=== PATIENT | male | born 2000 | race Caucasian/White ===

== ENCOUNTER 2018-03-25 09:33 | Emergency (ER) | payer OTHER ==
--- NOTE | 2018-03-25 10:11 | EDPHY ---
H & P Time Seen by Provider: 03/25/18 10:09 HPI/ROS: Chief complaint. Abdominal pain HPI. 17-year-old male presents emergency department with abdominal pain that began this morning. Worse with standing. It is upper mid abdomen and described as pressure. No radiation to back. Nausea without vomiting or diarrhea. History of GERD. No urinary symptoms. No fever. No chest pain or shortness of breath ROS 10 systems were reviewed and negative with the exception of the elements mentioned in the history of present illness Past Medical/Surgical History: Appendectomy Social History: Single, nonsmoker, no alcohol Smoking Status: Never smoked Physical Exam: General Appearance: Alert pleasant well-developed male mild distress vital signs are stable. Afebrile Eyes: Pupils equal and round no pallor or injection. ENT, Mouth: Mucous membranes are moist. Respiratory: There are no retractions, lungs are clear to auscultation. Cardiovascular: Regular rate and rhythm. Gastrointestinal: Abdomen is soft with mild tenderness in the epigastrium. Normal bowel sounds. No masses Neurological: Awake and alert, sensory and motor exams grossly normal. Skin: Warm and dry, no rashes. Musculoskeletal: Neck is supple nontender. Extremities symmetrical, full range of motion. Psychiatric: Patient is oriented X 3, there is no agitation. Constitutional: Initial Vital Signs Temperature (C) 36.3 C 03/25/18 09:38 Heart Rate 50 L 03/25/18 09:38 Respiratory Rate 18 03/25/18 09:38 Blood Pressure 117/65 03/25/18 09:38 O2 Sat (%) 99 03/25/18 09:38 O2 Delivery Mode Room Air Allergies/Adverse Reactions: No Known Allergies Allergy (Verified 03/25/18 09:38) Home Medications: Medication Instructions Recorded NK [No Known Home Meds] 03/25/18 Medical Decision Making - Diagnostics Imaging Results: Imaging Impressions Abdomen X-Ray 03/25/18 11:33 Impression: No evidence for obstruction or perforation identified. Upright abdomen shows no evidence of free air or air-fluid levels Procedures: IV normal saline. GI cocktail. ED Course/Re-evaluation: Re-evaluation 11:25 a.m.. Patient has no pain now. The patient, his mother, and I discussed laboratory evaluation. We discussed CT and upright abdomen x- ray. We agreed for upright abdomen x-ray. Differential Diagnosis: This certainly could be GERD. He has a history of GERD. No evidence for pancreatitis or cholecystitis. He now no longer has any pain. - Data Points Laboratory Results: Laboratory Results 03/25/18 10:00 03/25/18 10:00 03/25/18 03/25/18 10:00 10:00 WBC 3.73 10^3/uL L 10^3/uL (3.80-9.50) RBC 5.13 10^6/uL 10^6/uL (4.40-6.38) Hgb 15.2 g/dL g/dL (13.7-17.5) Hct 45.1 % % (40.0-51.0) MCV 87.9 fL fL (81.5-99.8) MCH 29.6 pg pg (27.9-34.1) MCHC 33.7 g/dL g/dL (32.4-36.7) RDW 12.7 % % (11.5-15.2) Plt Count 223 10^3/uL 10^3/uL (150-400) MPV 9.8 fL fL (8.7-11.7) Neut % (Auto) 47.5 % % (39.3-74.2) Lymph % (Auto) 40.5 % % (15.0-45.0) Door % (Auto) 7.2 % % (4.5-13.0) Eos % (Auto) 3.2 % % (0.6-7.6) Baso % (Auto) 1.3 % % (0.3-1.7) Nucleat RBC Rel Count 0.0 % % (0.0-0.2) Absolute Neuts (auto) 1.77 10^3/uL 10^3/uL (1.70-6.50) Absolute Lymphs (auto) 1.51 10^3/uL 10^3/uL (1.00-3.00) Absolute Monos (auto) 0.27 10^3/uL L 10^3/uL (0.30-0.80) Absolute Eos (auto) 0.12 10^3/uL 10^3/uL (0.03-0.40) Absolute Basos (auto) 0.05 10^3/uL 10^3/uL (0.02-0.10) Absolute Nucleated RBC 0.00 10^3/uL 10^3/uL (0-0.01) Immature Gran % 0.3 % % (0.0-1.1) Immature Gran # 0.01 10^3/uL 10^3/uL (0.00-0.10) Sodium 139 mEq/L mEq/L (135-145) Potassium 4.1 mEq/L mEq/L (3.5-5.2) Chloride 107 mEq/L mEq/L (97-110) Carbon Dioxide 25 mEq/l mEq/l (22-31) Anion Gap 7 mEq/L mEq/L (6-14) BUN 19 mg/dL mg/dL (7-23) Creatinine 0.8 mg/dL mg/dL (0.7-1.3) Estimated GFR > 60 Glucose 89 mg/dL mg/dL (70-100) Calcium 9.4 mg/dL mg/dL (8.5-10.4) Total Bilirubin 1.2 mg/dL mg/dL (0.1-1.4) Conjugated Bilirubin 0.2 mg/dL mg/dL (0.0-0.5) Unconjugated Bilirubin 1.0 mg/dL mg/dL (0.0-1.1) AST 24 IU/L IU/L (17-59) ALT 27 IU/L IU/L (21-72) Alkaline Phosphatase 46 IU/L IU/L (38-126) Total Protein 7.1 g/dL g/dL (6.3-8.2) Albumin 4.5 g/dL g/dL (3.5-5.0) Lipase 65 IU/L IU/L (23-300) Medications Given: Discontinued Medications Al Hydroxide/Mg Hydroxide (Maalox Susp) 30 ml PO ONCE ONE Stop: 03/25/18 10:22 Last Admin: 03/25/18 10:32 Dose: 30 ml Sodium Chloride (Ns) 1,000 mls @ 0 mls/hr IV EDNOW ONE; Wide Open PRN Reason: Protocol Stop: 03/25/18 10:22 Last Admin: 03/25/18 10:32 Dose: 1,000 mls Lidocaine (Lidocaine 2% Viscous) 15 ml PO ONCE ONE Stop: 03/25/18 10:22 Last Admin: 03/25/18 10:32 Dose: 15 ml Departure - Departure Disposition: Home, Routine, Self-Care Clinical Impression: Abdominal pain Qualifiers: Abdominal location: epigastric Qualified Code(s): R10.13 - Epigastric pain Condition: Good Instructions: Acute Abdominal Pain (ED) Additional Instructions: Consider Zantac, Prilosec from the grocery store and use as directed Maalox or Mylanta 2 tbsp especially at bedtime to help soothe your stomach. Return for worsening symptoms. Follow-up with Gastroenterology. Referrals: NONE *PRIMARY CARE P,. [Primary Care Provider] - As per Instructions Jesse Walter MD [Medical Doctor] - 2-3 days, call for appt.
[2018-03-25 10:16] LABS: PLATELET COUNT 223 10^3/uL (150-400)
[2018-03-25] MEDS ORDERED: LIDOCAINE 2% VISCOUS 15 ML UDCUP PO ONE (10:21)
[2018-03-25] MEDS ORDERED: MAG HYDROX/AL HYDROX/SIMETH 30 ML UDCUP PO ONE (10:21)
[2018-03-25] MEDS ORDERED: NS 1,000 ML IV ONE (10:21)
[2018-03-25 12:45] VITALS: BP 115/67
== END 2018-03-25 12:51 | disposition home or self-care (01) ==
DX: R10.13 Epigastric pain (principal); E86.9 Volume depletion, unspecified